=== PATIENT | male | born 1960 | race Caucasian/White ===

== ENCOUNTER 2023-08-25 14:27 | Emergency (ER) | payer MEDICARE, SELFPAY ==
[2023-08-25 14:42] VITALS: BP 124/68; PULSE 82; RESP 18; TEMP 36.9; O2SAT 96; BMI 24.3
[2023-08-25 15:00] VITALS: BP 139/75; PULSE 78; O2SAT 98
[2023-08-25 15:23] LABS: Basophils # 0.1 K/mm3 (0-0.2); Basophils % 1.1 % (0.1-2.0); Eosinophils # 0.3 K/mm3 (0.0-0.4); Eosinophils % 2.8 % (0.1-12.0); Hematocrit 29.9 % (42.0-52.0); Hemoglobin 9.3 g/dL (14.1-18.0); Lymphocytes # 0.9 K/mm3 (0.7-4.5); Lymphocytes % 9.7 % (10-50); Mean Corpuscular Hemoglobin 29.8 pg (27.0-31.2); Monocytes # 0.6 K/mm3 (0.1-1.0); Monocytes % 6.1 % (1.7-9.3); Neutrophils # 7.3 K/mm3 (1.8-7.8); Neutrophils % 80.3 % (37.0-80.0); Platelet Count 316 K/mm3 (142-424); Red Blood Count 3.12 M/mm3 (4.60-6.20); Red Cell Distribution Width 20.2 % (11.5-17.5); White Blood Count 9.1 K/mm3 (4.8-10.8)
[2023-08-25 15:30] LABS: Chloride 103 mmol/L (98-107); Potassium 4.4 mmoL/L (3.5-5.1); Sodium 136 mmol/L (136-145)
[2023-08-25 15:33] LABS: Alanine Aminotransferase 20 U/L (12-78); Albumin Level 3.4 g/dl (3.5-5.0); Albumin/Globulin Ratio 1.1 (1.1-1.8); Alkaline Phosphatase 128 U/L (38-126); Anion Gap 11.4 mEq/L (5-15); Aspartate Amino Transferase 30 U/L (17-59); Bilirubin,Total 0.8 mg/dl (0.2-1.3); Blood Urea Nitrogen 25 mg/dl (9-20); Calcium 8.4 mg/dl (8.4-10.2); Carbon Dioxide 26 mmol/L (22.0-30.0); Creatinine Clearance Estimated 26 mL/min (50-200); Estimated Glomerular Filt Rate 21 ml/min (>60); GFR (African American) 26 ML/MIN (>60); Globulin 3.2 g/dL (1.3-3.2); Glucose 114 mg/dl (74-100); Total Protein,Serum 6.6 g/dl (6.3-8.2)
[2023-08-25 15:34] LABS: Prothrombin Time 11.2 seconds (10.1-12.5)
--- NOTE | 2023-08-25 15:47 | ED_ITS ---
Discharge Plan Disposition Patient Disposition: Home, Self-Care Referrals Follow up/Referrals: She Galvan APRN [Primary Care Provider] - See instructions Activity Restrictions/Add. Instructions Additional Instructions/Restrictions: Please keep your follow-up appointments with your [facility] physicians and return with any significant worsening of your symptoms. Clinical Impressions Clinical Impression: Heart failure with reduced ejection fraction, Pulmonary edema, Pleural effusion, Ascites, Bilateral edema of lower extremity, ESRD on dialysis Discharge ED Provider: Arnav Sanchez Adult HPI General Chief complaint: Recheck/Abnormal Lab/Rx Stated complaint: paratheasis Time Seen by Provider: 08/25/23 15:07 Mode of Arrival: Wheelchair Source of Information: Patient and Spouse Limitations: No Limitations Description of Symptoms (Recalled from ER Triage Doc. by RN): pt arrives via wheelchair with his . He was brought down from radiology where he thought he was to have a pericentesis today. It turns out the pt was actually scheduled at [facility]. pt states he has a hx of kidney failure, heart failure, HTN, DM and CVA. Per pts he was at [facility] approximately 2-3wks ago and had a pericentesis taking off 2.5L. He is a [facility] dialysis pt, whom they ordered him to start having biweekly paracentesis. pt arrives requesting a para. pt reports he is slight SOA due to being fluid overloaded. pt states he has generalized, chronic, 8/10, and constant pain. History of Present Illness HPI narrative: Patient is a 63-year-old male presenting today for a therapeutic paracentesis. States that he had cardiac arrest several months ago subsequently developed heart failure and kidney failure. He has a permacath in his right anterior chest and has been on dialysis for the last 3 weeks. States that he has whole body edema secondary to valvular dysfunction and heart failure he has had extensive evaluation for his liver does not have any diagnosis of ascites. Has had 1 therapeutic paracentesis with symptomatic improvement. States his dialysis is not adequately getting fluid off of his body. He is followed by [facility] including cardiothoracic surgery cardiology nephrology etc. He was supposed to have a therapeutic paracentesis done today at [place] but there was a miscommunication and he was sent to [place]. Our radiologist here now have scheduled his therapeutic paracentesis outpatient in accordance with desires from the [facility] team but patient today came to the emergency department hoping to have his therapeutic paracentesis done today. No abdominal pain no fevers or chills no melena no hematic hematemesis etc. Related Data Allergies Allergy/AdvReac Type Severity Reaction Status Date / Time No Known Allergies Allergy Verified 08/25/23 14:50 [facility] Disclaimer: The information contained in this section may have been updated after the patient was seen, as this information can be updated by other users. Social History Smoking Status: Current every day smoker alcohol intake: never current occupational status: other Travel in the last 8 weeks: None ROS Obtained: Yes All systems reviewed & no additional complaints except as documented Physical Exam General General appearance: alert Chest Chest inspection: Present other (Well-healed midline sternotomy scar) Respiratory Respiratory exam: Present normal lung sounds bilaterally Cardiovascular Cardiovascular exam: Present regular rate Abdominal Exam Abdominal exam: Present distention (Tense ascites with positive fluid wave no significant tenderness) Neurological Exam Neurological exam: Present alert and oriented X3 Medical Decision Making Jordan Inquiry Pt receiving controlled substance: No Vital Signs: 08/25/23 14:42 08/25/23 15:00 08/25/23 16:00 Temperature 98.5 F Temperature Source Oral Pulse Rate 78 59 L Pulse Rate [Left] 82 Respiratory Rate 18 Blood Pressure 139/75 143/79 H Blood Pressure [Right Arm] 124/68 Blood Pressure Mean 90 93 Blood Pressure Mean [Right Arm] 86 Blood Pressure Source [Right Arm] Automatic Cuff Blood Pressure Position [Right Arm] Sitting 02 Sat by Pulse Oximetry 96 98 93 L Oxygen Delivery Method Room Air Room Air 08/25/23 16:30 08/25/23 17:00 Temperature Temperature Source Pulse Rate 59 L 59 L Pulse Rate [Left] Respiratory Rate Blood Pressure 141/83 H 155/84 H Blood Pressure [Right Arm] Blood Pressure Mean 92 94 Blood Pressure Mean [Right Arm] Blood Pressure Source [Right Arm] Blood Pressure Position [Right Arm] 02 Sat by Pulse Oximetry 94 L 95 Oxygen Delivery Method Lab Data Lab results reviewed: Yes I reviewed the patient's lab results. Lab Results 08/25/23 15:15: WBC 9.1, RBC 3.12 L, Hgb 9.3 L, Hct 29.9 L, MCV 96.0 H, MCH 29.8, MCHC 31.0 L, RDW 20.2 H, Plt Count 316, MPV 9.0, Neut % (Auto) 80.3 H, L ymph % (Auto) 9.7 L, [place] % (Auto) 6.1, Eos % (Auto) 2.8, Baso % (Auto) 1.1, Neut # (Auto) 7.3, Lymph # (Auto) 0.9, [place] # (Auto) 0.6, Eos # (Auto) 0.3, Baso # (Auto) 0.1, PT 11.2, INR 1.00, Sodium 136, Potassium 4.4, Chloride 103, Carbon Dioxide 26, Anion Gap 11.4, BUN 25 H, Creatinine 3.00 H, Estimated Creat Clear 26, Estimated GFR 21 L, Est GFR ( Amer) 26 L, Glucose 114 H, Calcium 8.4, Total Bilirubin 0.8, AST 30, ALT 20, Alkaline Phosphatase 128 H, Total Protein 6.6, Albumin 3.4 L, Globulin 3.2, Albumin/Globulin Ratio 1.1 08/25/23 16:00: Fluid Source Paracentesis fluid, Fluid Volume 22, Fluid Appearance Hazy, Fluid RBC (Auto) < 10, Fld Tot Nucleated Cell 301 08/25/23 15:15 08/25/23 15:15 Orders (Tests/Meds): ORDERS Category Date Time Status POCUS Point of Care (ER Only) Stat Exams 08/25/23 15:14 Completed Body Fluid: Cell Count w/ Diff Stat Lab 08/25/23 16:00 Results CBC w/Auto Diff [Complete Blood Count Auto Diff] Stat Lab 08/25/23 15:15 Completed CMP [Comprehensive Metabolic Panel] Stat Lab 08/25/23 15:15 Completed PT INR [Prothrombin Time INR] Stat Lab 08/25/23 15:15 Completed Body Fluid Cult & Gram Stain Stat Micro 08/25/23 15:17 Ordered Medical Decision Narrative: Patient is a chronically ill 63-year-old male with severe heart failure with reduced ejection fraction presents today with bilateral pulmonary edema and effusions whole body edema and large ascites. He is on dialysis and has not been able to diurese naturally and his dialysate removal has not been adequately taking fluid off of his body thus he has been in need of therapeutic paracentesis. He understands any risks associated with volume shifting and electrolyte abnormalities and worsening of his renal failure as he does still make some urine but is having dialysis Thursday and Thursday which she has not been missing. Patient is aware that he has a severely depressed ejection fraction and is closely followed by [facility]. He is unsure as to why he does not have a LifeVest or a defibrillator but states that he is closely following with them. They are aware that all of his symptoms are secondary to heart failure so I suspect that they are aware of his severely diminished LVEF. He does not want to be admitted here and wants to continue to be managed by his team at [facility]. He was consented for a therapeutic paracentesis and this was successfully performed. Will check cell count to make sure that he does not have SBP and will reassess. 3-1/2 L were taken off patient feels significantly better he will follow-up close outpatient with his doctors. Labs unremarkable from an emergency standpoint creatinine is 3 but he is on dialysis. Initial cell count was around 300 nucleated cells but awaiting differential I will call him if there is greater than 250 PMNs which is very unlikely. Patient is discharged in stable condition. Procedures Paracentesis Time Out Performed: Yes Indication: Ascites Procedure: therapeutic paracentesis Location: RLQ Local Anesthetic: lidocaine 1% and with epi Amount of anesthesia used (mL): 5 Bedside Ultrasound Used: yes, real-time guidance (Real-time guidance with ultrasound images saved) Preparation: 11 blade used to make timothy in skin Amount of fluid obtained (mL): 3,500 Fluid: clear Post Procedure Exam: awake, alert, normal BP, normal HR and normal SpO2 Patient Tolerated Procedure: well Miscellaneous Procedure Procedure Performed: Limited abdominal ultrasound Indication evaluation for possible ascites and marking for paracentesis Findings large ascites found with large fluid pocket marked Summary patient has evidence of ascites with adequate fluid collection for therapeutic paracentesis images were saved no further imaging needed Limited cardiac ultrasound Indication: Dyspnea Identified structures: The heart was visualized in the parasternal long axis, parastenal short axis, apical four chamber and subxyphiod views. The IVC was visualized in the short axis and long axis at its entry into the right atrium. Findings: Severely depressed LVEF with dilated IVC without any respirophasic variation no pericardial effusion Impression: Severely depressed LVEF Images were saved to permanent archive The study was technically adequate CPT: 82622-81 This study was performed by me, and I personally interpreted all images/videos. Based on my clinical judgement, these images were adequate and did not necessitate further imaging. Limited lung ultrasound A focused ultrasound exam of the pleural spaces was performed to evaluate for pneumothorax, pulmonary edema, pleural effusion and/or consolidation. The ultrasound was performed with the following indications, as noted in the H&P: Dyspnea Identified structures: Right and left thoracic cavities were examined. Findings: Lung sliding present bilaterally there is diffuse B-lines and bilateral pleural effusions right greater than left no focal consolidations noted Impression: Extensive pulmonary edema and right greater than left pleural effusions Images were sent to permanent archive The study was technically adequate CPT 89590-88 This study was performed by me, and I personally interpreted all images/videos. Based on my clinical judgement, these images were added and did not necessitate further imaging. Critical Care Critical Care Time Critical Care Time: No
[2023-08-25 16:00] VITALS: BP 143/79; PULSE 59; O2SAT 93
[2023-08-25 16:30] VITALS: BP 141/83; PULSE 59; O2SAT 94
[2023-08-25 16:33] LABS: Appearance,Body Fld. Hazy; Source, Body Fld. Paracentesis Fluid; Volume,Body Fld. 22 mL
[2023-08-25 16:45] LABS: RBC,Body Fluid < 10 cells/uL (< 10 X 10^3); TNC,Body Fluid 301 cells/uL (< 1000)
[2023-08-25 17:00] VITALS: BP 155/84; PULSE 59; O2SAT 95
--- NOTE | 2023-08-25 17:03 | PC.NURSE ---
I assisted the pt in repositioning.
[2023-08-25 17:50] VITALS: BP 155/84; PULSE 80; RESP 18; TEMP 36.9; O2SAT 95
[2023-08-25 17:57] LABS: Mononuclear WBCs,Body Fluid 95 %; Polynuclear WBC,Body Fluid 5 %
== END 2023-08-25 17:52 | disposition home or self-care (01) ==
PROVIDERS: Student in an Organized Health Care Education/Training Program; Emergency Provider Emergency Medicine; PCP Nurse Practitioner Family
DX: R18.8 Other ascites (principal); J90 Pleural effusion, not elsewhere classified; J81.1 Chronic pulmonary edema; N18.6 End stage renal disease; I11.0 Hypertensive heart disease with heart failure; I50.20 Unspecified systolic (congestive) heart failure; F17.210 Nicotine dependence, cigarettes, uncomplicated; Z99.2 Dependence on renal dialysis
CPT/HCPCS: 49083; 80053; 85025; 85610; 87070; 87205; 89051; 99284

== ENCOUNTER 2023-09-08 09:30 | Outpatient (CLI) | payer MEDICARE, MEDICAID, SELFPAY ==
--- NOTE | 2023-09-08 09:50 | US_ITS ---
FINAL REPORT CLINICAL HISTORY: ASCITES FINDINGS: Ultrasound limited Clinical history: Patient presents for paracentesis. Findings: Ultrasound imaging in all 4 quadrants demonstrates an insufficient amount of fluid for paracentesis. The examination was terminated. IMPRESSION: Insufficient amount of pleural fluid for paracentesis. Films reviewed , interpreted and dictated by Dr. Madison Carlson. Transcribed by Mariano John PA-C. Reviewed, Interpreted and Dictated by Madison Carlson MD Transcribed by ARAVIND Senior Authenticated and [facility]
== END 2023-09-08 23:59 | disposition home or self-care (01) ==
LOC: RAD 09:31
PROVIDERS: PCP Nurse Practitioner Family; Visit Provider Student in an Organized Health Care Education/Training Program
DX: R18.8 Other ascites (principal); E87.70 Fluid overload, unspecified
CPT/HCPCS: 76705